=== PATIENT | female | born 2005 | race Caucasian/White ===

== ENCOUNTER 2025-03-25 14:23 | Emergency (ER) | payer MEDICAID, SELFPAY ==
[2025-03-25 14:25] VITALS: BMI 31.6
[2025-03-25 15:25] VITALS: BP 108/75; PULSE 85; RESP 19; TEMP 36.8; O2SAT 98
--- NOTE | 2025-03-25 15:31 | EDNOTE_ITS ---
ED Abdominal Pain RME/HPI General Chief Complaint: Abdominal Pain Stated complaint: MID LOWER ABD PAIN X2 DAYS & VAGINAL ODOR Time seen by provider: 03/25/25 15:00 Arrival date/time: 03/25/25 14:23 Limitations: no limitations RME / HPI RME / HPI narrative: DR. JULIANA WASHINGTON ED EVALUATION: 19-year-old female with no significant medical history aside from being on a mood stabilizer presents to the Emergency Department with complaint of bilateral lower abdominal pain, which worsened today. Associated symptoms include dysuria. Patient was previously seen at [facility], where blood was noted in the urine. Although an UTI was not confirmed, she was prescribed a 5-day course of Macrobid but she has taken 3 days so far. She denies nausea, vomiting, diarrhea, fever, chills, recent travel, or flank pain. No known drug allergies. Denies . Patient denies any tobacco, alcohol, or substance use. Related Data Previous Rx's ?Medication ?Instructions ?Recorded polyethylene glycol 3350 17 12 gm PO DAILY PRN 3 days ##0 09/06/12 gram/dose oral powder (Miralax) cephalexin 500 mg tablet 500 mg PO Q6H #5 tabs Allergies Allergy/AdvReac Type Severity Reaction Status Date / Time NKA* Allergy Uncoded 03/25/25 14:28 Review of Systems Review of Systems Systems Reviewed: All systems reviewed, normal except as documented Past Medical History Social History SMOKING STATUS: Never smoker SUBSTANCE USE: does not use ALCOHOL: Never ED Exam General Limitations: Present no limitations General appearance: Present alert and in no apparent distress Head Head exam: Present atraumatic, normocephalic and normal inspection Eye Eye exam: Present normal appearance, PERRL and EOMI ENT ENT exam: Present normal exam, normal oropharynx and mucous membranes moist Neck Neck exam: Present normal inspection, full ROM and trachea midline Chest Chest inspection: Present normal inspection and symmetric chest wall rise Respiratory Respiratory exam: Present normal lung sounds bilaterally Cardiovascular Cardiovascular exam: Present regular rate, normal rhythm and normal heart sounds Abdominal Exam Abdominal exam: Present tenderness (bilateral lower abdominal tenderness) and normal bowel sounds Extremities Exam Extremities exam: Present normal inspection and full ROM Back Exam Back exam: Present normal inspection and full ROM Neurological Exam Neurological exam: Present alert, oriented X3 and CN II-XII intact Psychiatric Psychiatric exam: Present normal affect and normal mood Skin Skin exam: Present warm, dry, intact and normal color Course Quality Measures none Orders Category Date Time Status US pelvic complete Stat Exams 03/25/25 15:36 Completed HCG,Qualitative Serum Stat Lab 03/25/25 16:19 Completed UA, C/S IF [Urinalysis, C/S if Indicated] Stat Lab 03/25/25 16:45 Completed Acetaminophen Tab [Tylenol Tab] Med 03/25/25 15:36 Discontinued 650 mg PO X1 ONE Ketorolac Inj [Toradol Inj] Med 03/25/25 18:25 Discontinued 15 mg IM X1 ONE cefTRIAXone [Rocephin] 1,000 mg Med 03/25/25 18:25 Discontinued Lidocaine 1% 20 ml [Xylocaine 1% 20 ML] 2.1 ml IM X1 Vital Signs Vital signs: Vital Signs Temperature 98.3 F 03/25/25 15:25 Pulse Rate 85 03/25/25 15:25 Respiratory Rate 19 03/25/25 15:25 Blood Pressure 108/75 03/25/25 15:25 Pulse Oximetry (%) 98 03/25/25 15:25 Oxygen Delivery Method Room Air 03/25/25 15:25 Abdominal Pain MDM MDM Narrative MDM Narrative:: I, Bernarda Nguyen am scribing for and in the presence of Dr. Chacon. Patient is a 19-year-old female to the emergency with concerns for suprapubic pain, and dysuria. Vital signs and exam as above. Concern for urinary tract infection, ovarian torsion. Patient without any flank tenderness palpation, less likely pyelonephritis, urolithiasis. Patient is nonseptic, nontoxic. Ordered urinalysis, ovarian ultrasound. Patient is not , pelvic ultrasound with flow to the right ovary left ovary was not visualized secondary to bowel gas however patient does not have any pain in the left lower quadrant. Urinalysis is clean however given patient has been on antibiotics, complains of dysuria and suprapubic pain, had joint decision-making conversation with patient, will treat for urinary tract infection. Patient was previously on Macrobid, will send the urine for culture and provide patient with a dose of ceftriaxone here and sent home a prescription for cephalexin. Close return precautions provided. Patient data External records reviewed:: [facility] previous records Clinical information provided by:: patient Social determinants that could affect healthcare access:: none Patient has the following chronic illnesses:: No significant medical history aside from being on a mood stabilizer. Patient denies any tobacco, alcohol, or substance use. No known drug allergies. How is presenting disease/condition affected by chronic disease/condition?: uneffected by Evaluation data The following diagnostics were reviewed and interpreted by me:: lab results and radiology exam(s) Lab and/or radiology exams considered but not ordered:: none Interpretation Summary: Procedure(s): US pelvic complete Accession Number(s): [id number] cc: Ghulam Longoria MD; Liyah hCacon MD~ Examination: Pelvic ultrasound, transabdominal, complete Technique: Transabdominal ultrasound of the pelvis performed using grayscale imaging Date and time of exam: March 25, 2025, 1542 hrs. Indications: Onset of pelvic pain beginning 3 days ago Findings: Uterus 6.1 cm endometrial stripe 0.7 cm. No uterine mass or intrauterine gestation Right ovary 5.0 cm arterial flow small follicles Left ovary obscured by bowel gas Impression: No uterine mass or intrauterine gestation Dictated By: Ghulam Longoria MD Medications / Prescriptions Medications or Prescriptions considered but not ordered:: none Medication administrations:: Medication Administration History Discontinued Medications Acetaminophen (Acetaminophen 325 Mg Tablet) 650 mg PO X1 ONE Stop: 03/25/25 15:37 Last Admin: 03/25/25 16:55 Dose: 650 mg Documented By: Ceftriaxone Sodium 1,000 mg/ (Lidocaine HCl 2.1 ml) 0 mg IM X1 ONE Stop: 03/25/25 18:26 Ketorolac Tromethamine (Ketorolac Inj 60 Mg/2 Ml Vial) 15 mg IM X1 ONE Stop: 03/25/25 18:26 see above Consultations Consultation(s) initiated? (list below): No Diagnosis Differential diagnosis abdominal pain: other (UTI, pelvic inflammatory disease, and non-infectious cystitis) Most likely diagnosis given after review of the tests above:: Cystitis, suprapubic pain Admission Indicated Admission indicated?: not indicated Admission Request Was there a request for admission?: No Disposition Plan Disposition Plan: Discharge Discharge Attestation Discharge Attestation: The patient and all family members were given an opportunity to ask questions and understood the discharge instructions. Discharge instructions specifically effects, indications for sooner follow up or return to the emergency department, and the expected course of current diagnosis. Patient condition: Stable Discharge Plan Plan Patient Disposition: HOME (Self Care) Patient condition on transfer: Stable Prescriptions/Referrals Prescriptions/Med Rec: New cephalexin 500 mg tablet 500 mg PO Q6H Qty: 5 0RF No Action polyethylene glycol 3350 [Miralax] 255 GM powder 12 gm PO DAILY PRN 3 Days Qty: 0 0RF Referrals: Thompson Peguero MD [Primary Care Provider] - In 1 week Problem List Clinical Impression: Cystitis, Suprapubic pain Patient/Caregiver Discharge Instructions Education Materials: Understanding Urinary Tract ... Additional Instructions: Your pelvic ultrasound did not identify any evidence of torsion. I suspect your symptoms have to do with your undertreated urinary tract infection. Today we provided you with antibiotics and sent home a new prescription for antibiotics. My preference is that you continue this antibiotic and discontinue the prior. Please follow-up with your primary care doctor. Return to the emergency room immediately if you have worsening symptoms or new symptoms of concern. Print Language: Lithuanian Stand Alone Forms: [employer] Info., Patient Portal Info Letter
--- NOTE | 2025-03-25 15:36 | XR_ITS ---
Examination: Pelvic ultrasound, transabdominal, complete Technique: Transabdominal ultrasound of the pelvis performed using grayscale imaging Date and time of exam: March 25, 2025, 1542 hrs. Indications: Onset of pelvic pain beginning 3 days ago Findings: Uterus 6.1 cm endometrial stripe 0.7 cm. No uterine mass or intrauterine gestation Right ovary 5.0 cm arterial flow small follicles Left ovary obscured by bowel gas Impression: No uterine mass or intrauterine gestation
[2025-03-25 16:46] LABS: HCG,Qualitative Serum Negative
[2025-03-25] MEDS: ACETAMINOPHEN 325 MG TABLET 650 MG PO (16:55)
[2025-03-25 17:23] LABS: Collection Type, Urine Clean Catch
[2025-03-25 17:35] LABS: Bilirubin,Urine Negative (Negative); Blood,Urine Negative (Negative); Clarity,Urine Clear (Clear/Hazy); Color,Urine Yellow (Lt Yel-Yel); Culture Indicated,Urine Not Indicated; Glucose, Urine Negative (Negative); Ketones,Urine Negative (Negative); Leukocyte Esterase,Urine Negative (Negative); Nitrite,Urine Negative (Negative); PH,Urine 6.5 (5.0-7.0); Protein,Urine Negative (Neg - Trace); RBC,Urine 3 /hpf (0-3); Specific Gravity,Urine 1.023 (1.001-1.035); Squamous Epithelial Cell,Urine 3 /hpf (0-5); Urobilinogen,Urine Negative mg/dL (0.0-1.0); WBC,Urine 2 /hpf (0-5)
[2025-03-25] MEDS: KETOROLAC INJ 60 MG/2 ML VIAL 15 MG IM (18:43)
[2025-03-25] MEDS: cefTRIAXone 1,000 MG, LIDOCAINE 1% 20 ML 2.1 ML IM (18:44)
[2025-03-25 19:12] VITALS: RESP 18
== END 2025-03-25 19:13 | disposition home or self-care (01) ==
PROVIDERS: Emergency Provider Emergency Medicine; PCP Family Medicine
DX: N30.90 Cystitis, unspecified without hematuria (principal); R10.2 Pelvic and perineal pain
CPT/HCPCS: 36415; 76856; 81001; 84703; 96372; 99283; J0696; J1885; J3490; A9270

== ENCOUNTER 2025-07-05 08:42 | Emergency (ER) | payer MEDICAID, SELFPAY ==
[2025-07-05 08:43] VITALS: BMI 28.3
[2025-07-05 08:59] VITALS: BP 111/76; PULSE 84; RESP 18; TEMP 36.8; O2SAT 95
--- NOTE | 2025-07-05 09:08 | XR_ITS ---
Examination: Abdomen AP single view Technique: AP portable supine abdomen, single view (2 images total) Exam date and time: 07/05/2025 at 9:12 a.m. INDICATION: Constipation for 1 week COMPARISON: Abdominal radiograph 09/05/2012 FINDINGS: Mild to moderate fecal material is identified in the rectum, and very mild in the ascending and transverse colon. There is less stool burden throughout the colon compared to the prior abdominal radiograph. No bowel dilatation concerning for obstruction. No free air. Visualized lower lung matute are clear and heart size is normal. No acute osseous abnormalities. IMPRESSION: There is less stool burden throughout the colon compared to the prior exam, currently mild in the ascending and transverse colon and mild to moderate in the rectum. No evidence for acute abdomen otherwise.
--- NOTE | 2025-07-05 09:09 | PD.EDRME ---
Rapid Medical Screening Exam RME Arrival date/time: 07/05/25 08:42 20-year-old female currently on Zepbound 7.5 mg recently upped her dose complains of constipation patient reports multiple attempts to relieve this at home without relief Chief Complaint: GI Bleed Vital signs: Vital Signs Temperature 98.3 F 07/05/25 08:59 Pulse Rate 84 07/05/25 08:59 Respiratory Rate 18 07/05/25 08:59 Blood Pressure 111/76 07/05/25 08:59 Pulse Oximetry (%) 95 07/05/25 08:59 Oxygen Delivery Method Room Air 07/05/25 08:59 Vital signs reviewed by provider: Yes Exam: On exam patient is mild tenderness lower abdomen Clinical Impression: Lab work imaging ordered soapsuds enema ordered
[2025-07-05 09:34] LABS: Collection Type, Urine Clean Catch
[2025-07-05 09:40] LABS: HCG Qualitative,Urine Negative
[2025-07-05 09:41] LABS: Bacteria,Urine 1+; Bilirubin,Urine Negative (Negative); Blood,Urine Negative (Negative); Color,Urine Yellow (Lt Yel-Yel); Culture Indicated,Urine Contaminated; Glucose, Urine Negative (Negative); Ketones,Urine Negative (Negative); Leukocyte Esterase,Urine Positive (Negative); Nitrite,Urine Negative (Negative); PH,Urine 7.0 (5.0-7.0); Protein,Urine Trace (Neg - Trace); RBC,Urine 8 /hpf (0-3); Specific Gravity,Urine 1.026 (1.001-1.035); Squamous Epithelial Cell,Urine 15 /hpf (0-5); Urobilinogen,Urine Negative mg/dL (0.0-1.0); WBC,Urine 37 /hpf (0-5)
[2025-07-05 09:58] LABS: Basophils # (Auto) 0.1 Thou/mm3 (0.0-0.2); Basophils % (Auto) 1 % (0-2.5); Eosinophils # (Auto) 0.1 Thou/mm3 (0.0-0.5); Eosinophils % (Auto) 2 % (0-10); Hematocrit 46.0 % (36.0-46.0); Hemoglobin 15.3 g/dL (12.0-16.0); Immature Granulocytes Auto 0.01 Thou/mm3 (0.00-0.00); Lymphocytes # (Auto) 2.0 Thou/mm3 (1.0-4.8); Lymphocytes % (Auto) 32 % (10-50); Mean Corpuscular HGB Conc 33.3 g/dl (31.0-37.0); Mean Corpuscular Hemoglobin 30.1 pg (25.0-35.0); Mean Corpuscular Volume 91 fL (80-100); Monocytes # (Auto) 0.5 Thou/mm3 (0.0-0.8); Monocytes % (Auto) 8 % (0-12); Neutrophils # (Auto) 3.6 Thou/mm3 (1.8-7.7); Neutrophils % (Auto) 58 % (37-80); Nucleated Red Blood Cell # 0.00 Thou/mm3 (0.00-0.00); Nucleated Red Blood Cell % 0 /100 WBC (0); Platelet Count 254 Thou/mm3 (140-440); RDW Standard Deviation 41.7 fL (36.4-46.3); Red Blood Count 5.08 Miln/mm3 (4.00-5.20); White Blood Count 6.3 Thou/mm3 (3.6-11.0)
[2025-07-05 10:01] LABS: Clarity,Urine Hazy (Clear/Hazy)
[2025-07-05 10:06] LABS: Alanine Aminotransferase 33 U/L (10-49); Albumin, Serum 5.3 gm/dL (3.5-5.0); Albumin/Globulin Ratio 2.3 (1.2-2.2); Alkaline Phosphatase 55 U/L (46-116); Anion Gap 8 (7-16); Aspartate Amino Transferase 24 U/L (0-34); BUN/Creatinine Ratio 9 Ratio (12-20); Bilirubin,Total 0.6 mg/dL (0.3-1.2); Blood Urea Nitrogen 7 mg/dL (9-23); Calcium 10.0 mg/dL (8.3-10.6); Calcium (Corrected) 10.0 mg/dL (8.5-10.1); Carbon Dioxide 25.1 mMol/L (20.0-31.0); Chloride 107 mMol/L (98-107); Creatinine (Component) 0.8 mg/dL (0.6-1.3); Estimated Creatinine Clearance 114.2 mL/min (>60); Globulin 2.3 gm/dL (2.3-3.5); Glucose 87 mg/dL (74-106); Lipase 33 U/L (12-53); Osmolality,Calculated 276 (275-295); Potassium 4.5 mMol/L (3.4-5.1); Sodium 140 mMol/L (136-145); Total Protein 7.6 gm/dL (5.7-8.2); eGFR > 60 See Note
[2025-07-05 10:49] VITALS: BP 102/72; PULSE 82; RESP 17; TEMP 36.9; O2SAT 100
--- NOTE | 2025-07-05 11:10 | PC.NURSE ---
patient states hard to havea bowel movement since she uped her zepbound dose 7.5mg every week , last taken last wednesday, patient is now experiencing abdominal pain and constipation, states she doesnt drink too much fluid, will have small bm that are hard and minimal in amount
[2025-07-05 12:02] VITALS: BP 110/83; PULSE 105; RESP 18; TEMP 36.8; O2SAT 99
[2025-07-05 12:47] VITALS: BP 100/68; PULSE 85; RESP 18; O2SAT 100
--- NOTE | 2025-07-05 16:56 | PD.EDGIBLD ---
ED GI Bleed RME/HPI General Chief complaint: GI Bleed Stated complaint: NO BM x 7 DAYS, RECTAL BLEEDING x 2 DAYS Arrival date/time: 07/05/25 08:42 Limitations: no limitations RME / HPI RME / HPI Narrative: 07/05/25 08:42 20-year-old female currently on Zepbound 7.5 mg recently upped her dose complains of constipation patient reports multiple attempts to relieve this at home without relief DR. DIAZ MAIN ED EVALUATION: 20 year old female presents to the ED for evaluation of constipation for 1 week. Accompanied by abdominal discomfort. Patient reports using enemas and stool softeners at home with no relief. Now reports blood per rectum x 1 day. No other associated symptoms or complaints. No fevers, chills, chest pain, cough, shortness of breath, vomiting, or urinary symptoms. Patient additionally reports she is on Zepbound and her dosage was increased from 5mg to 7.5mg weekly. Exam: On exam patient is mild tenderness lower abdomen Impression: Lab work imaging ordered soapsuds enema ordered Related Data Previous Rx's ?Medication ?Instructions ?Recorded polyethylene glycol 3350 17 12 gm PO DAILY PRN 3 days ##0 09/06/12 gram/dose oral powder (Miralax) cephalexin 500 mg tablet 500 mg PO Q6H #5 tabs 03/25/25 bisacodyl 10 mg rectal suppository [address] TID PRN constipation #30 07/05/25 (Dulcolax (bisacodyl)) ea lactulose 20 gram oral packet 20 g PO TID CONSTIPATION #30 ea 07/05/25 Allergies Allergy/AdvReac Type Severity Reaction Status Date / Time No Known Allergies Allergy Verified 07/05/25 08:45 Review of Systems Review of Systems Systems Reviewed: All systems reviewed, normal except as documented Past Medical History Past Medical History NEUROLOGIC: Negative Neurological Disorders CARDIAC: Negative Cardiac Disorders RESPIRATORY: Negative Respiratory Disorders GASTROINTESTINAL: Negative Gastrointestinal Disorders GENITOURINARY: Negative Genitourinary Disorders or Renal Disease ENT: Negative History of ENT Problems ENDOCRINE: Negative Endocrine Disorders HEMATOLOGIC: Negative Blood Disorders Surgical History SURGICAL: Negative Cardiac Surgery, Ear Surgery, Abdominal Surgery, Joint Replacement, Neurologic Surgery, Brain Shunt, Lumpectomy or ESWL Social History SMOKING STATUS: Never smoker SUBSTANCE USE: does not use ED Exam General Limitations: Present no limitations General appearance: Present alert and in no apparent distress Head Head exam: Present atraumatic Eye Eye exam: Present normal appearance, PERRL and EOMI ENT ENT exam: Present normal exam, normal oropharynx and mucous membranes moist Neck Neck exam: Present normal inspection, full ROM and trachea midline Chest Chest inspection: Present normal inspection and symmetric chest wall rise Respiratory Respiratory exam: Present normal lung sounds bilaterally Cardiovascular Cardiovascular exam: Present regular rate, normal rhythm and normal heart sounds Abdominal Exam Abdominal exam: Present soft and normal bowel sounds; Absent distention, tenderness, guarding, rebound or rigidity Extremities Exam Extremities exam: Present normal inspection and full ROM Back Exam Back exam: Present normal inspection and full ROM Neurological Exam Neurological exam: Present alert, oriented X3 and CN II-XII intact Psychiatric Psychiatric exam: Present normal affect and normal mood Skin Skin exam: Present warm, dry, intact and normal color Course Quality Measures none Orders Category Date Time Status Soap Suds [Enema Administration] NOW Care 07/05/25 09:08 Completed XR abdomen 1V Stat Exams 07/05/25 09:08 Completed CBC Stat Lab 07/05/25 09:41 Completed Comprehensive Metabolic Panel Stat Lab 07/05/25 09:41 Completed HCG Qualitative,Urine Stat Lab 07/05/25 09:20 Completed Lipase Stat Lab 07/05/25 09:41 Completed UA, C/S IF [Urinalysis, C/S if Indicated] Stat Lab 07/05/25 09:20 Completed Vital Signs Vital signs: Vital Signs Temperature 98.3 F 07/05/25 08:59 Pulse Rate 84 07/05/25 08:59 Respiratory Rate 18 07/05/25 08:59 Blood Pressure 111/76 07/05/25 08:59 Pulse Oximetry (%) 95 07/05/25 08:59 Oxygen Delivery Method Room Air 07/05/25 08:59 Pulse ox is 95% on room air which is adequate. GI Bleed MDM Narrative MDM Narrative:: Salma Reddy am scribing for and in the presence of Dr. Diaz. Patient data External records reviewed:: [facility] previous records Clinical information provided by:: patient Social determinants that could affect healthcare access:: none Patient has the following chronic illnesses:: None reported How is presenting disease/condition affected by chronic disease/condition?: no chronic disease Evaluation data The following diagnostics were reviewed and interpreted by me:: lab results Lab and/or radiology exams considered but not ordered:: None Interpretation Summary: Ordering Physician: Lola THOMAS)Asif NP Date of Service: 07/05/25 Procedure(s): XR abdomen 1V Accession Number(s): [id number] cc: Lola THOMAS),Asif CLAYTON; Yair Whitney DO~ Examination: Abdomen AP single view Technique: AP portable supine abdomen, single view (2 images total) Exam date and time: 07/05/2025 at 9:12 a.m. INDICATION: Constipation for 1 week COMPARISON: Abdominal radiograph 09/05/2012 FINDINGS: Mild to moderate fecal material is identified in the rectum, and very mild in the ascending and transverse colon. There is less stool burden throughout the colon compared to the prior abdominal radiograph. No bowel dilatation concerning for obstruction. No free air. Visualized lower lung matute are clear and heart size is normal. No acute osseous abnormalities. IMPRESSION: There is less stool burden throughout the colon compared to the prior exam, currently mild in the ascending and transverse colon and mild to moderate in the rectum. No evidence for acute abdomen otherwise. Dictated By: Yair Whitney DO Signed By: <Electronically signed by Yair Whitney DO in OV> 07/05/25 0937 Medications / Prescriptions Medications or Prescriptions considered but not ordered:: None Medication administrations:: None Consultations Consultation(s) initiated? (list below): No Diagnosis GI bleed differential diagnosis: hemorrhoids, anal fissure and other (constipation, medication side effect ) Most likely diagnosis given after review of the tests above:: Constipation Admission Indicated Admission indicated?: not indicated Explain why admission is indicated or not indicated:: With no condition needing emergent intervention, there was no indication for admission. Admission Request Was there a request for admission?: No Disposition Plan Disposition Plan: Discharge Discharge Attestation Discharge Attestation: The patient and all family members were given an opportunity to ask questions and understood the discharge instructions. Discharge instructions specifically effects, indications for sooner follow up or return to the emergency department, and the expected course of current diagnosis. Patient condition: Stable Discharge Plan Plan Patient Disposition: HOME (Self Care) Patient condition on transfer: Stable Prescriptions/Referrals Prescriptions/Med Rec: New bisacodyl [Dulcolax (bisacodyl)] 10 mg suppository [address] TID MDD 3 PRN (Reason: constipation) Qty: 30 1RF lactulose 20 gram packet 20 g PO TID MDD 60 GRAMS Qty: 30 2RF No Action polyethylene glycol 3350 [Miralax] 255 GM powder 12 gm PO DAILY PRN 3 Days Qty: 0 0RF cephalexin 500 mg tablet 500 mg PO Q6H Qty: 5 0RF Referrals: Thompson Peguero MD [Primary Care Provider, Family Practice] - In 1 week Problem List Clinical Impression: Constipation by delayed colonic transit Patient/Caregiver Discharge Instructions Discharge Activity: activity as tolerated Education Materials: Treating Constipation, Eating a High-Fiber Diet, How the Colon Works, ED Constipation (Adult) Additional Instructions: Follow-up with your doctor regarding the dose of Zepbound that you are taking. Take the meds prescribed as needed for constipation. Drink plenty of fluids. Increase fiber in your diet. Print Language: [place] Verdean Stand Alone Forms: [employer] Info., Patient Portal Info Letter
== END 2025-07-05 12:49 | disposition home or self-care (01) ==
PROVIDERS: Nurse Practitioner Primary Care; Emergency Provider Family Medicine; PCP Family Medicine
DX: K59.01 Slow transit constipation (principal)
CPT/HCPCS: 36415; 74018; 80053; 81001; 81025; 83690; 85025; 99283

== ENCOUNTER 2025-07-07 13:45 | Emergency (ER) | payer MEDICAID, SELFPAY ==
[2025-07-07 14:15] VITALS: BP 119/83; PULSE 87; RESP 20; TEMP 37; O2SAT 96
--- NOTE | 2025-07-07 14:48 | XR_ITS ---
Examination: Abdomen AP single view Technique: AP portable supine abdomen, single view Exam date and time: 07/07/2025, 3:10 p.m. COMPARISON: 07/05/2025 INDICATION: Constipation. FINDINGS: Nonobstructive nondilated bowel gas pattern. Diffuse fecal material in the colon. No significant changes when compared to prior exam. IMPRESSION: Nondilated bowel gas pattern. Diffuse fecal material in the colon
[2025-07-07] MEDS: ONDANSETRON ODT 4 MG TABRAP PO (15:02)
[2025-07-07 15:18] LABS: Collection Type, Urine Voided
[2025-07-07 15:23] LABS: Basophils # (Auto) 0.0 Thou/mm3 (0.0-0.2); Basophils % (Auto) 1 % (0-2.5); Eosinophils # (Auto) 0.1 Thou/mm3 (0.0-0.5); Eosinophils % (Auto) 1 % (0-10); Hematocrit 42.0 % (36.0-46.0); Hemoglobin 14.4 g/dL (12.0-16.0); Immature Granulocytes Auto 0.01 Thou/mm3 (0.00-0.00); Lymphocytes # (Auto) 2.6 Thou/mm3 (1.0-4.8); Lymphocytes % (Auto) 37 % (10-50); Mean Corpuscular HGB Conc 34.3 g/dl (31.0-37.0); Mean Corpuscular Hemoglobin 30.6 pg (25.0-35.0); Mean Corpuscular Volume 89 fL (80-100); Monocytes # (Auto) 0.7 Thou/mm3 (0.0-0.8); Monocytes % (Auto) 10 % (0-12); Neutrophils # (Auto) 3.5 Thou/mm3 (1.8-7.7); Neutrophils % (Auto) 51 % (37-80); Nucleated Red Blood Cell # 0.00 Thou/mm3 (0.00-0.00); Nucleated Red Blood Cell % 0 /100 WBC (0); Platelet Count 241 Thou/mm3 (140-440); RDW Standard Deviation 41.1 fL (36.4-46.3); Red Blood Count 4.71 Miln/mm3 (4.00-5.20); White Blood Count 6.9 Thou/mm3 (3.6-11.0)
[2025-07-07 15:30] LABS: HCG Qualitative,Urine Negative
[2025-07-07 15:33] LABS: Bilirubin,Urine Negative (Negative); Blood,Urine Negative (Negative); Clarity,Urine Clear (Clear/Hazy); Color,Urine Yellow (Lt Yel-Yel); Culture Indicated,Urine Not Indicated; Glucose, Urine Negative (Negative); Ketones,Urine 1+ (Negative); Leukocyte Esterase,Urine Positive (Negative); Nitrite,Urine Negative (Negative); PH,Urine 6.5 (5.0-7.0); Protein,Urine Trace (Neg - Trace); RBC,Urine 4 /hpf (0-3); Specific Gravity,Urine 1.029 (1.001-1.035); Squamous Epithelial Cell,Urine 5 /hpf (0-5); Urobilinogen,Urine Negative mg/dL (0.0-1.0); WBC,Urine 1 /hpf (0-5)
--- NOTE | 2025-07-07 15:37 | PD.EDABDPN ---
ED Abdominal Pain RME/HPI General Chief Complaint: Abdominal Pain Stated complaint: soap suds enema on , abdominal pain Time seen by provider: 07/07/25 14:12 Arrival date/time: 07/07/25 13:45 This is a 20-year-old female that comes into the emergency room with complaints of constipation, abdominal pain and nausea. Patient states she was just seen in the emergency room and was diagnosed with constipation. Patient was given a soapsuds enema. Patient states she has been having bowel movements but still feels like she is constipated. Related Data Previous Rx's ?Medication ?Instructions ?Recorded polyethylene glycol 3350 17 12 gm PO DAILY PRN 3 days ##0 09/06/12 gram/dose oral powder (Miralax) cephalexin 500 mg tablet 500 mg PO Q6H #5 tabs 03/25/25 bisacodyl 10 mg rectal suppository 10 mg OR TID PRN constipation #30 07/05/25 (Dulcolax (bisacodyl)) ea lactulose 20 gram oral packet 20 g PO TID CONSTIPATION #30 ea 07/05/25 sennosides 8.6 mg-docusate sodium 1 tab-cap PO BID #30 tabs 07/07/25 50 mg tablet (Senokot-S) Allergies Allergy/AdvReac Type Severity Reaction Status Date / Time No Known Allergies Allergy Verified 07/07/25 13:51 Review of Systems Review of Systems Systems Reviewed: All systems reviewed, normal except as documented Past Medical History Past Medical History NEUROLOGIC: Negative Neurological Disorders CARDIAC: Negative Cardiac Disorders RESPIRATORY: Negative Respiratory Disorders GASTROINTESTINAL: Negative Gastrointestinal Disorders GENITOURINARY: Negative Genitourinary Disorders or Renal Disease ENT: Negative History of ENT Problems ENDOCRINE: Negative Endocrine Disorders HEMATOLOGIC: Negative Blood Disorders Surgical History SURGICAL: Negative Cardiac Surgery, Ear Surgery, Abdominal Surgery, Joint Replacement, Neurologic Surgery, Brain Shunt, Lumpectomy or ESWL Social History SMOKING STATUS: Never smoker SUBSTANCE USE: does not use ED Exam Narrative Physical exam: VITAL SIGNS: Reviewed. GENERAL APPEARANCE: Alert and interactive, follows commands, no acute distress HEAD AND FACE: Non-traumatic. ENT: PERRL, conjuctiva pink and clear, eyelid no trauma, Mucous membrane moist. NECK: Supple, nontender, no nuchal rigidity. CHEST: No tenderness, no crepitus, no paradoxical movement, no retractions. LUNGS: breathing even and unlabored HEART: Regular rate, cap refill less than 2 seconds ABDOMEN: Soft, nondistended, no guarding, nontender to palpation NEUROLOGICAL: Gross motor function intact sensory function intact, Appropriate for age. MUSCULOSKELETAL: low back nontender, full range of motion. EXTREMITIES: No redness no swelling no skin breakdown on bilateral foot and leg. Distal neurovascular status intact bilateral foot SKIN: Color pink, dry Course Quality Measures none Orders Category Date Time Status KUB [XR abdomen 1V] Stat Exams 07/07/25 14:48 Completed CBC Stat Lab 07/07/25 15:10 Completed Drug Screen,Urine Stat Lab 07/07/25 15:07 Completed HCG Qualitative,Urine Stat Lab 07/07/25 15:07 Completed Lipase Stat Lab 07/07/25 15:10 Completed Urinalysis, C/S if Indicated Stat Lab 07/07/25 15:07 Completed Lactulose Syrup [Enulose Syrup] Med 07/07/25 16:49 Discontinued 20 gm PO X1 ONE Ondansetron Odt [Zofran Odt] Med 07/07/25 14:48 Discontinued 4 mg PO X1 ONE Vital Signs Vital signs: Vital Signs Temperature 98.6 F 07/07/25 14:15 Pulse Rate 87 07/07/25 14:15 Respiratory Rate 20 07/07/25 14:15 Blood Pressure 119/83 07/07/25 14:15 Pulse Oximetry (%) 96 07/07/25 14:15 Oxygen Delivery Method Room Air 07/07/25 14:15 Abdominal Pain MDM MDM Narrative MDM Narrative:: Patient reports that she was on Zepbound. Patient's last dose was about last week. Patient was already told not to take the medication anymore because this caused her to have constipation. Patient states she is to take medication anymore. Will give patient a dose of lactulose. I will send patient home with Senokot. Will send patient told to follow-up with primary provider in 1 to 2 days. Come back to emergency room symptoms change or worsen. Patient states that she has had this UTI on and off. She sees a urologist next week. Patient states she has been treated with antibiotics in the past already. For now will not treat with antibiotics. Patient will follow-up with urologist. Patient feels comfortable plan of care. kub: INDICATION: Constipation. FINDINGS: Nonobstructive nondilated bowel gas pattern. Diffuse fecal material in the colon. No significant changes when compared to prior exam. IMPRESSION: Nondilated bowel gas pattern. Diffuse fecal material in the colon Labs reviewed CBC unremarkable BMP unremarkable lipase normal UA shows some leukocyte esterase and some RBCs. Discussed this patient. She has a follow-up appointment with urology Diamante dictation: Although this document has been carefully reviewed, there may still be some phonetic and other typographical errors. These errors are purely grammatical due to imperfections in the software program and should not be construed in any way to compromise the substance of the patient's medical care during this visit. Patient data External records reviewed:: [facility] previous records Clinical information provided by:: patient Social determinants that could affect healthcare access:: none Patient has the following chronic illnesses:: none How is presenting disease/condition affected by chronic disease/condition?: no chronic disease Evaluation data The following diagnostics were reviewed and interpreted by me:: lab results and radiology exam(s) Lab and/or radiology exams considered but not ordered:: none Interpretation Summary: see [facility] Medications / Prescriptions Medications or Prescriptions considered but not ordered:: none Medication administrations:: Medication Administration History Discontinued Medications Lactulose (Lactulose Syrup 20 Gm/30 Ml Udc) 20 gm PO X1 ONE; Protocol Stop: 07/07/25 16:50 Last Admin: 07/07/25 17:05 Dose: 20 gm Documented By: GUCCI Ondansetron HCl (Ondansetron Odt 4 Mg Tabrap) 4 mg PO X1 ONE; Protocol Stop: 07/07/25 14:49 Last Admin: 07/07/25 15:02 Dose: 4 mg Documented By: GUCCI see [facility] Consultations Consultation(s) initiated? (list below): No Diagnosis Differential diagnosis abdominal pain: abdominal pain and other (constipation,uti ) Most likely diagnosis given after review of the tests above:: constipation Admission Indicated Admission indicated?: not indicated Admission Request Was there a request for admission?: No Disposition Plan Disposition Plan: Discharge Discharge Attestation Discharge Attestation: The patient and all family members were given an opportunity to ask questions and understood the discharge instructions. Discharge instructions specifically effects, indications for sooner follow up or return to the emergency department, and the expected course of current diagnosis. Patient condition: Stable Discharge Plan Plan Patient Disposition: HOME (Self Care) Patient condition on transfer: Stable Prescriptions/Referrals Prescriptions/Med Rec: New sennosides-docusate sodium [Senokot-S] 8.6-50 mg tablet 1 tab-cap PO BID Qty: 30 0RF No Action polyethylene glycol 3350 [Miralax] 255 GM powder 12 gm PO DAILY PRN 3 Days Qty: 0 0RF bisacodyl [Dulcolax (bisacodyl)] 10 mg suppository 10 mg OR TID MDD 3 PRN (Reason: constipation) Qty: 30 1RF lactulose 20 gram packet 20 g PO TID MDD 60 GRAMS Qty: 30 2RF cephalexin 500 mg tablet 500 mg PO Q6H Qty: 5 0RF Referrals: Thompson Peguero MD [Primary Care Provider, Family Practice] - In 1 week Problem List Clinical Impression: Constipation Patient/Caregiver Discharge Instructions Discharge Activity: activity as tolerated Education Materials: ED Constipation (Adult) Additional Instructions: Follow up with primary provider in 1-2 days. Come back to ED if symptoms change or worsen Print Language: Danish Stand Alone Forms: Gisel Award Info., Patient Portal Info Letter PA/TEXTILE MACHINERY SALES REPRESENTATIVE Supervising Physician PA/TEXTILE MACHINERY SALES REPRESENTATIVE Supervising Physician: domo
[2025-07-07 15:44] LABS: Amphetamine/Methamp Scrn,U Negative (Negative); Barbiturate Screen,Urine Negative (Negative); Benzodiazepines Screen,Urine Negative (Negative); Benzoylecgonine Screen, Ur Negative (Negative); Fentanyl Screen,Urine Negative (Negative); Opiate Screen,Urine Negative (Negative); THC Screen,Urine Negative (Negative)
[2025-07-07 16:00] LABS: Lipase 32 U/L (12-53)
[2025-07-07] MEDS: LACTULOSE SYRUP 20 GM/30 ML UDC PO (17:05)
== END 2025-07-07 17:16 | disposition home or self-care (01) ==
PROVIDERS: Nurse Practitioner Family; Emergency Provider Emergency Medicine; PCP Family Medicine
DX: K59.00 Constipation, unspecified (principal)
CPT/HCPCS: 36415; 74018; 80307; 81001; 81025; 83690; 85025; 99283; Q0162; A9270